=== PATIENT | female | born 1970 ===

== ENCOUNTER 2016-08-07 17:49 | Emergency (ER) | payer BC ==
--- NOTE | 2016-08-07 19:44 | C.PDOC ---
History Of Present Illness 45 y/o female presents to ED with complaint of panic and anxiety. Notes history of the same. Denies fever, chills, chest pain, palpitations, shortness of breath , headache, weakness or numbness, or other associated symptoms. Time Seen by Provider: 08/07/16 18:48 Chief Complaint (Nursing): Weakness/Neurological Deficit History Per: Patient History/Exam Limitations: no limitations Onset/Duration Of Symptoms: Days Current Symptoms Are (Timing): Still Present Modifying Factor(s): None Associated Symptoms: denies: Suicidal Thoughts, Suicidal Plan Recent travel outside of the [place]: No Past Medical History Reviewed: Historical Data, Nursing Documentation, Vital Signs Vital Signs: Last Vital Signs Temp 98.6 F 08/07/16 19:54 Pulse 75 08/07/16 19:54 Resp 20 08/07/16 19:54 BP 129/83 08/07/16 19:54 Pulse Ox 99 08/07/16 20:00 - Medical History PMH: Anxiety Surgical History: Cholecystectomy Family History: States: Unknown Family Hx - Social History Hx Alcohol Use: No Hx Substance Use: No - Immunization History Hx Tetanus Toxoid Vaccination: No Hx Influenza Vaccination: Yes Hx Pneumococcal Vaccination: No Review Of Systems Except As Marked, All Systems Reviewed And Found Negative. Constitutional: Negative for: Fever, Chills Cardiovascular: Negative for: Chest Pain, Palpitations Respiratory: Negative for: Cough, Shortness of Breath, Wheezing Gastrointestinal: Negative for: Nausea, Vomiting Neurological: Negative for: Weakness, Numbness, Headache, Dizziness Psych: Positive for: Anxiety. Negative for: Depression Physical Exam - Physical Exam Appears: Non-toxic, No Acute Distress, Other (obese, anxious, pressured speech, tearful) Skin: Normal Color, Warm, Dry Head: Atraumatic, Normacephalic Eye(s): bilateral: Normal Inspection Chest: Symmetrical Cardiovascular: Rhythm Regular Respiratory: Normal Breath Sounds, No Rales, No Rhonchi, No Wheezing Gastrointestinal/Abdominal: Soft, No Tenderness Back: Normal Inspection Extremity: Normal ROM, Capillary Refill (< 2 sec. ) Neurological/Psych: Oriented x3, Normal Speech, Normal Cognition ED Course And Treatment O2 Sat by Pulse Oximetry: 99 (RA) Pulse Ox Interpretation: Normal Progress Note: Xanax 0.5 PO, nonrebreather mask given. Patient noted improvement on reassessment. Reevaluation Time: :42 Reassessment Condition: Improved Critical Care Time - Critical Care Note Total Time (in mins): 45 Documented critical care: time excludes all time spent performing seperately billable procedures. Medical Decision Making Medical Decision Making: h/o anxiety/depression/panic, lost to f/u with psych/pmd has NOT f/u as instructed 03/27 Again educated on diet/exercise, lifestyle changes and outpatient psych counseling/meds Xanax 0.25 PRN for anxiety Disposition Doctor Will See Patient In The: Office Counseled Patient/Family Regarding: Studies Performed, Diagnosis - Disposition Referrals: [facility] [Outside] [facility] [Outside] Judah Garay Jr., MD [Medical Doctor] - Disposition: HOME/ ROUTINE Disposition Time: 19:44 Condition: GOOD Additional Instructions: follow-up with Dr. Garay to consider outpatient psychiatric evaluation and [facility], [place] offers free outpatient psych counseling/meds Xanax 0.25 mg every 6 hours as needed for panic/anxiety Prescriptions: ALPRAZolam [Xanax] 0.25 mg PO Q6H PRN #6 tab PRN Reason: anxiety/panic Instructions: Panic Disorder (ED), Panic Attack (ED) - Clinical Impression Clinical Impression: Anxiety, Panic attack - Scribe Statement The provider has reviewed the documentation as recorded by the Rachell Mcgowan Provider Scribe Attestation: All medical record entries made by the Scribe were at my direction and personally dictated by me. I have reviewed the chart and agree that the record accurately reflects my personal performance of the history, physical exam, medical decision making, and the department course for this patient. I have also personally directed, reviewed, and agree with the discharge instructions and disposition.
[2016-08-07 19:55] VITALS: BP 129/83; PULSE 75; RESP 20; TEMP 98.6
[2016-08-07 20:00] VITALS: O2SAT 99
== END 2016-08-07 19:55 | disposition home or self-care (01) ==
LOC: C.ER 17:49
DX: F41.0 Panic disorder [episodic paroxysmal anxiety] (principal)